=== PATIENT | female | born 1945 | race Caucasian/White ===

== ENCOUNTER 2019-01-21 06:56 | Inpatient (IN) ==
[2019-01-21] MEDS ORDERED: ONDANSETRON 4 MG/2 ML VIAL IV STA (07:36)
[2019-01-21] MEDS ORDERED: SODIUM CHLORIDE 0.9% 1,000 ML IV STA (07:36)
[2019-01-21 07:52] LABS: Basophils % 0.4 % (0.0-0.8); Eosinophils # 0.1 10*3/uL (0.0-0.87); Eosinophils % 1.7 % (0.00-10.9); Hematocrit 32.3 VOL% (35.7-47.0); Hemoglobin 10.8 GM/DL (12.0-16.0); Immature Granulocytes % 0.5 %; Immature Granulocytes Absolute 0.04 #; Lymphocytes # 1.1 10*3/uL (1.4-4.0); Lymphocytes % 12.9 % (21.3-54.2); Mean Corpuscular HGB Conc 33.4 GM/DL (32-36); Mean Corpuscular Volume 83.7 FL (87-102); Mean Platelet Volume 10.2 FL (9.6-12.0); Neutrophils % 76.5 % (38.7-73.9); Platelet Count 214 T/CUMM (130-400); Red Blood Count 3.86 MC/CUMM (3.8-5.5); White Blood Count 8.3 T/CUMM (4-12)
[2019-01-21 07:56] LABS: Apearance,Urine CLEAR (Clear); Bacteria,Urine Occasional /HPF (Few); Bilirubin,Urine Negative (Negative); Blood, Urine Negative (Negative); Glucose,Urine (UA) Negative (Negative); Ketones,Urine Negative (Negative); Nitrite,Urine Negative (Negative); Protein,Urine Negative; RBC,Urine <1 /HPF (0-4); Squamous Epithelial Cell,Urine Occasional /HPF (0-10); Urine Color Straw (Yellow); Urine Specific Gravity 1.003 (1.001-1.035); Urine Urobilinogen < 2.0 EU/DL (0.2-1.0); WBC,Urine 3 /HPF (0-6)
[2019-01-21 08:35] LABS: Calcium 7.2 MG/DL (8.5-10.1)
[2019-01-21 08:36] LABS: Albumin 3.6 G/DL (3.4-5.0); Bilirubin,Total 0.62 MG/DL (0.2-1.0); Osmolality,Calculated 290.1 MOS/KG (273-304); Total Protein 7.4 G/DL (6.4-8.3)
[2019-01-21] MEDS ORDERED: GLUCAGON 1 MG VIAL IM PRN (10:39)
[2019-01-21] MEDS ORDERED: DEXTROSE 50% 25 GM/50 ML VIAL IV PRN (10:39)
[2019-01-21] MEDS ORDERED: CALCIUM (CARBONATE) 600 MG TABLET PO SCH (12:00)
[2019-01-21] MEDS: SODIUM CHLORIDE 0.9% 1,000 ML IV SCH (12:31)
[2019-01-21] MEDS: INSULIN LISPRO 100 UNIT/ML SUBCUT SCH ×3 (12:37→21:48)
[2019-01-21] MEDS: TRIAMTERENE HYDROCHLOROTHIAZIDE PO SCH (12:38)
[2019-01-21] MEDS: ATENOLOL 50 MG PO SCH (12:38)
[2019-01-21] MEDS: CALCIUM (CARBONATE) 500 MG TABLET PO SCH (16:21)
[2019-01-22 00:57] LABS: Basophils % 0.3 % (0.0-0.8); Eosinophils # 0.3 10*3/uL (0.0-0.87); Eosinophils % 3.5 % (0.00-10.9); Hematocrit 29.9 VOL% (35.7-47.0); Immature Granulocytes % 0.3 %; Immature Granulocytes Absolute 0.03 #; Lymphocytes # 1.9 10*3/uL (1.4-4.0); Lymphocytes % 20.7 % (21.3-54.2); Mean Corpuscular HGB Conc 33.4 GM/DL (32-36); Mean Corpuscular Volume 84.9 FL (87-102); Mean Platelet Volume 10.1 FL (9.6-12.0); Monocytes % 8.1 % (1.7-12.7); Neutrophils % 67.1 % (38.7-73.9); Platelet Count 197 T/CUMM (130-400); Red Blood Count 3.52 MC/CUMM (3.8-5.5); White Blood Count 9.2 T/CUMM (4-12)
[2019-01-22 01:14] LABS: Albumin 3.3 G/DL (3.4-5.0); Bilirubin,Total 0.5 MG/DL (0.2-1.0); Calcium 7.4 MG/DL (8.5-10.1); Osmolality,Calculated 287.3 MOS/KG (273-304); Risk Ratio 3.23; Thyroid Stimulating Hormone 0.464 uIU/ml (0.358-3.74); Total Protein 6.7 G/DL (6.4-8.3); VLDL CHOLESTEROL 27.6 MG/DL
[2019-01-22] MEDS ORDERED: MAGNESIUM SULF RIDER 4 GM in PREMIX 1 EACH IV PRN (03:46)
[2019-01-22] MEDS ORDERED: POTASSIUM CHLORIDE 20 MEQ TABLET PO PRN (03:46)
[2019-01-22] MEDS: SODIUM CHLORIDE 0.9% 1,000 ML IV SCH ×2 (03:48→14:51)
[2019-01-22] MEDS: MAGNESIUM SULF RIDER 2 GM in PREMIX 1 EACH IV PRN ×2 (04:08→06:05)
[2019-01-22] MEDS: POTASSIUM CHLORIDE 20 MEQ TABLET PO PRN ×3 (04:09→09:02)
[2019-01-22] MEDS: OMEPRAZOLE 20MG CAPSULE PO SCH (08:58)
[2019-01-22] MEDS: ATENOLOL 50 MG PO SCH (08:58)
[2019-01-22] MEDS: TRIAMTERENE HYDROCHLOROTHIAZIDE PO SCH (09:00)
[2019-01-22] MEDS: INSULIN LISPRO 100 UNIT/ML SUBCUT SCH ×4 (09:01→21:47)
[2019-01-22] MEDS: ENOXAPARIN 40 MG/0.4 ML SYRINGE SUBCUT SCH (09:02)
[2019-01-22] MEDS: CALCIUM (CARBONATE) 500 MG TABLET PO SCH ×3 (09:05→16:36)
[2019-01-22] MEDS ORDERED: CALCIUM GLUCONATE 1,000 MG in SODIUM CHLORIDE 0.9% 100 ML IV ONE (10:00)
[2019-01-22] MEDS: ONDANSETRON 4 MG/2 ML VIAL IV PRN ×2 (10:37→21:50)
[2019-01-22] MEDS: hydrALAZINE 20 MG/1 ML VIAL IV PRN (16:36)
[2019-01-22] MEDS: ACETAMINOPHEN 325 MG TABLET PO PRN (19:35)
[2019-01-23 05:02] LABS: Basophils % 0.3 % (0.0-0.8); Eosinophils # 0.3 10*3/uL (0.0-0.87); Eosinophils % 2.9 % (0.00-10.9); Hematocrit 30.4 VOL% (35.7-47.0); Hemoglobin 10.1 GM/DL (12.0-16.0); Immature Granulocytes % 0.6 %; Immature Granulocytes Absolute 0.06 #; Lymphocytes # 1.8 10*3/uL (1.4-4.0); Lymphocytes % 19.5 % (21.3-54.2); Mean Corpuscular HGB Conc 33.2 GM/DL (32-36); Mean Corpuscular Volume 85.4 FL (87-102); Mean Platelet Volume 10.1 FL (9.6-12.0); Monocytes % 9.7 % (1.7-12.7); Platelet Count 194 T/CUMM (130-400); Red Blood Count 3.56 MC/CUMM (3.8-5.5); White Blood Count 9.3 T/CUMM (4-12)
[2019-01-23] MEDS: SODIUM CHLORIDE 0.9% 1,000 ML IV SCH (05:10)
[2019-01-23 05:25] LABS: Albumin 3.3 G/DL (3.4-5.0); Bilirubin,Total 1.2 MG/DL (0.2-1.0); Calcium 7.9 MG/DL (8.5-10.1); Osmolality,Calculated 284.3 MOS/KG (273-304); Total Protein 6.8 G/DL (6.4-8.3)
[2019-01-23] MEDS ORDERED: MAGNESIUM SULF RIDER 2 GM in PREMIX 1 EACH IV ONE ×2 (08:05→11:49)
[2019-01-23] MEDS: CALCIUM (CARBONATE) 500 MG TABLET PO SCH ×3 (08:09→18:03)
[2019-01-23] MEDS: hydrALAZINE 20 MG/1 ML VIAL IV PRN (08:10)
[2019-01-23] MEDS: ATENOLOL 50 MG PO SCH (08:17)
[2019-01-23] MEDS ORDERED: cloNIDine 0.1 MG TABLET PO ONE (08:20)
[2019-01-23] MEDS ORDERED: LORazepam 2 MG/1 ML VIAL IV ONE (08:20)
[2019-01-23] MEDS: ENOXAPARIN 40 MG/0.4 ML SYRINGE SUBCUT SCH (08:31)
[2019-01-23] MEDS: OMEPRAZOLE 20MG CAPSULE PO SCH (08:32)
[2019-01-23] MEDS: TRIAMTERENE HYDROCHLOROTHIAZIDE PO SCH (08:33)
[2019-01-23] MEDS: INSULIN LISPRO 100 UNIT/ML SUBCUT SCH ×4 (08:51→20:34)
[2019-01-23] MEDS ORDERED: CLORAZEPATE 3.75 MG TABLET PO SCH (09:00)
[2019-01-23 09:23] LABS: Free T4 (Free Thyroxine) 1.71 NG/DL (0.76-1.46); Thyroid Stimulating Hormone 0.685 uIU/ml (0.358-3.74)
[2019-01-23 09:32] LABS: ABG Base Excess -3.7 MMOL/L (-2.5-2.5); ABG HCO3 21.3 MMOL/L (20-26); ABG Oxygen Saturation 98.1 % (95-100); ABG PH 7.389 (7.35-7.45); ABG TCO2 18.3 MMOL/L (23-27)
[2019-01-23 10:20] LABS: % Iron Saturation 10.7 % (18-50); Total Protein 7.2 G/DL (6.4-8.3); Vitamin B12 802 PG/ML (211-911)
[2019-01-23] MEDS ORDERED: POTASSIUM CHLORIDE 20 MEQ TABLET PO ONE (11:49)
[2019-01-23] MEDS: CHOLECALCIFEROL 5,000 UNIT TABLET PO SCH (12:59)
[2019-01-23] MEDS: ACETAMINOPHEN 325 MG TABLET PO PRN (14:28)
[2019-01-23] MEDS: busPIRone 5 MG TABLET PO PRN (14:28)
[2019-01-23] MEDS: DOCUSATE SODIUM 100 MG CAPSULE PO SCH ×2 (14:28→20:36)
[2019-01-24 05:30] LABS: Basophils % 0.4 % (0.0-0.8); Eosinophils # 0.3 10*3/uL (0.0-0.87); Eosinophils % 2.6 % (0.00-10.9); Hematocrit 29.7 VOL% (35.7-47.0); Hemoglobin 9.7 GM/DL (12.0-16.0); Immature Granulocytes % 0.6 %; Immature Granulocytes Absolute 0.06 #; Lymphocytes # 1.3 10*3/uL (1.4-4.0); Lymphocytes % 13.9 % (21.3-54.2); Mean Corpuscular HGB Conc 32.7 GM/DL (32-36); Mean Corpuscular Volume 85.6 FL (87-102); Mean Platelet Volume 10.5 FL (9.6-12.0); Monocytes % 8.5 % (1.7-12.7); Platelet Count 211 T/CUMM (130-400); Red Blood Count 3.47 MC/CUMM (3.8-5.5); Red Cell Distribution Width 12.2 % (9.3-17.3); White Blood Count 9.6 T/CUMM (4-12)
[2019-01-24 05:53] LABS: Albumin 3.1 G/DL (3.4-5.0); Bilirubin,Total 0.8 MG/DL (0.2-1.0); Calcium 7.5 MG/DL (8.5-10.1); Osmolality,Calculated 283.7 MOS/KG (273-304); Total Protein 6.8 G/DL (6.4-8.3)
[2019-01-24] MEDS: ENOXAPARIN 40 MG/0.4 ML SYRINGE SUBCUT SCH (08:39)
[2019-01-24] MEDS: INSULIN LISPRO 100 UNIT/ML SUBCUT SCH ×4 (08:40→21:26)
[2019-01-24] MEDS: DOCUSATE SODIUM 100 MG CAPSULE PO SCH ×2 (08:40→21:27)
[2019-01-24] MEDS: CALCIUM (CARBONATE) 500 MG TABLET PO SCH ×3 (08:40→17:02)
[2019-01-24] MEDS: CHOLECALCIFEROL 5,000 UNIT TABLET PO SCH (08:40)
[2019-01-24] MEDS: ESCITALOPRAM 10 MG TABLET PO SCH (08:42)
[2019-01-24] MEDS: OMEPRAZOLE 20MG CAPSULE PO SCH (09:40)
[2019-01-24] MEDS: ATENOLOL 50 MG PO SCH (09:41)
[2019-01-24] MEDS ORDERED: CALCIUM GLUCONATE 1,000 MG in SODIUM CHLORIDE 0.9% 100 ML IV ONE (11:30)
[2019-01-24] MEDS: amLODIPine 5 MG TABLET PO SCH (11:55)
[2019-01-24] MEDS: NYSTATIN 500,000 UNIT/5 ML UDCUP SWISH/SWAL SCH ×4 (11:55→21:26)
[2019-01-24] MEDS: ONDANSETRON 4 MG/2 ML VIAL IV PRN (18:21)
[2019-01-24] MEDS: hydrALAZINE 20 MG/1 ML VIAL IV PRN (23:30)
[2019-01-25] MEDS: LEVOTHYROXINE 88 MCG TABLET PO SCH (06:18)
[2019-01-25] MEDS: CHOLECALCIFEROL 5,000 UNIT TABLET PO SCH (09:42)
[2019-01-25] MEDS: amLODIPine 5 MG TABLET PO SCH (09:42)
[2019-01-25] MEDS: CALCIUM (CARBONATE) 500 MG TABLET PO SCH ×3 (09:43→16:51)
[2019-01-25] MEDS: NYSTATIN 500,000 UNIT/5 ML UDCUP SWISH/SWAL SCH ×4 (09:43→20:48)
[2019-01-25] MEDS: DOCUSATE SODIUM 100 MG CAPSULE PO SCH ×2 (09:43→20:48)
[2019-01-25] MEDS: busPIRone 5 MG TABLET PO PRN (09:48)
[2019-01-25] MEDS: ENOXAPARIN 40 MG/0.4 ML SYRINGE SUBCUT SCH (09:48)
[2019-01-25] MEDS: INSULIN LISPRO 100 UNIT/ML SUBCUT SCH ×4 (09:49→21:35)
[2019-01-25] MEDS: ESCITALOPRAM 10 MG TABLET PO SCH (09:49)
[2019-01-25] MEDS: ATENOLOL 50 MG PO SCH (10:45)
[2019-01-25] MEDS: OMEPRAZOLE 20MG CAPSULE PO SCH (10:45)
[2019-01-25] MEDS ORDERED: ZALEPLON 5 MG CAPSULE PO PRN (11:14)
[2019-01-25] MEDS ORDERED: SODIUM CHLORIDE 0.9% 1,000 ML IV SCH (11:30)
[2019-01-25] MEDS: LIOTHYRONINE 25 MCG TABLET PO SCH ×2 (11:51→14:08)
[2019-01-25 13:04] LABS: Calcium 7.4 MG/DL (8.5-10.1)
[2019-01-25] MEDS ORDERED: LORazepam 2 MG/1 ML VIAL IV ONE (16:27)
[2019-01-25] MEDS: CLORAZEPATE 3.75 MG TABLET PO SCH ×2 (16:52→20:48)
[2019-01-25] MEDS ORDERED: MAGNESIUM SULF RIDER 2 GM in PREMIX 1 EACH IV ONE (17:14)
[2019-01-26 05:31] LABS: Immunoglobulin A (Chem) 144 MG/DL (70-400); Immunoglobulin G (Chem) 684 MG/DL (700-1600); Immunoglobulin M (Chem) 221 MG/DL (40-230); Total Protein (Chem) 7.2 G/DL (6.4-8.3)
[2019-01-26] MEDS: LEVOTHYROXINE 88 MCG TABLET PO SCH (06:25)
[2019-01-26] MEDS: LIOTHYRONINE 25 MCG TABLET PO SCH (06:26)
[2019-01-26] MEDS: ESCITALOPRAM 10 MG TABLET PO SCH (08:10)
[2019-01-26] MEDS: CALCIUM (CARBONATE) 500 MG TABLET PO SCH ×3 (08:10→16:40)
[2019-01-26] MEDS: INSULIN LISPRO 100 UNIT/ML SUBCUT SCH ×4 (08:10→21:22)
[2019-01-26] MEDS: ENOXAPARIN 40 MG/0.4 ML SYRINGE SUBCUT SCH (08:10)
[2019-01-26] MEDS: busPIRone 5 MG TABLET PO PRN (08:10)
[2019-01-26] MEDS: NYSTATIN 500,000 UNIT/5 ML UDCUP SWISH/SWAL SCH ×4 (08:10→21:12)
[2019-01-26] MEDS: CLORAZEPATE 3.75 MG TABLET PO SCH (08:10)
[2019-01-26] MEDS: DOCUSATE SODIUM 100 MG CAPSULE PO SCH ×2 (08:10→21:12)
[2019-01-26] MEDS: amLODIPine 5 MG TABLET PO SCH (08:10)
[2019-01-26] MEDS: CHOLECALCIFEROL 5,000 UNIT TABLET PO SCH (08:10)
[2019-01-26] MEDS: OMEPRAZOLE 20MG CAPSULE PO SCH (08:19)
[2019-01-26] MEDS: ATENOLOL 50 MG PO SCH (08:20)
[2019-01-26 08:34] LABS: Albumin (SPE) 4.2 G/DL (3.2-5.3); Albumin (SPE) Rel % 57.9 %; Alpha 1 (SPE) 0.3 G/DL (0.1-0.4); Alpha 1 (SPE) Rel % 3.6 %; Alpha 2 (SPE) 1.1 G/DL (0.4-1.0); Alpha 2 (SPE) Rel % 15.7 %; Beta (SPE) 0.9 G/DL (0.5-1.1); Gamma (SPE) 0.8 G/DL (0.7-1.7); Gamma (SPE) Rel % 10.8 %
[2019-01-26] MEDS ORDERED: CALCIUM GLUCONATE 1,000 MG in SODIUM CHLORIDE 0.9% 100 ML IV ONE (10:25)
[2019-01-26] MEDS ORDERED: busPIRone 5 MG TABLET PO PRN (10:27)
[2019-01-26 11:18] LABS: Calcium 7.2 MG/DL (8.5-10.1); Osmolality,Calculated 276.5 MOS/KG (273-304)
[2019-01-26] MEDS: MAGNESIUM CHLORIDE 64 MG TABLET PO SCH ×2 (15:42→21:12)
[2019-01-26] MEDS: CALCITRIOL 0.5 MCG CAPSULE PO SCH ×2 (15:43→21:12)
[2019-01-26] MEDS: ONDANSETRON 4 MG/2 ML VIAL IV PRN (18:08)
[2019-01-26 20:43] LABS: ABG Base Excess -2.2 MMOL/L (-2.5-2.5); ABG HCO3 22.4 MMOL/L (20-26); ABG Oxygen Saturation 88.4 % (95-100); ABG PCO2 45.6 MM HG (35-48); ABG PH 7.328 (7.35-7.45); ABG PO2 59.6 MM HG (80-95); Allen Test Positive; Pt O2 Delivery Device CPAP
[2019-01-26] MEDS: INSULIN GLARGINE 100 UNIT/ML SUBCUT SCH (21:18)
[2019-01-27 05:11] LABS: Calcium 7.3 MG/DL (8.5-10.1)
[2019-01-27] MEDS: LIOTHYRONINE 25 MCG TABLET PO SCH (06:46)
[2019-01-27] MEDS: LEVOTHYROXINE 88 MCG TABLET PO SCH (06:46)
[2019-01-27] MEDS: OMEPRAZOLE 20MG CAPSULE PO SCH ×2 (08:50→08:52)
[2019-01-27] MEDS: INSULIN LISPRO 100 UNIT/ML SUBCUT SCH ×4 (08:50→22:40)
[2019-01-27] MEDS: CALCIUM (CARBONATE) 500 MG TABLET PO SCH ×4 (08:50→16:34)
[2019-01-27] MEDS: DOCUSATE SODIUM 100 MG CAPSULE PO SCH ×3 (08:51→22:40)
[2019-01-27] MEDS: ATENOLOL 50 MG PO SCH ×2 (08:51)
[2019-01-27] MEDS: ESCITALOPRAM 10 MG TABLET PO SCH ×2 (08:51)
[2019-01-27] MEDS: CALCITRIOL 0.5 MCG CAPSULE PO SCH ×3 (08:52→22:39)
[2019-01-27] MEDS: ENOXAPARIN 40 MG/0.4 ML SYRINGE SUBCUT SCH (08:52)
[2019-01-27] MEDS: MAGNESIUM CHLORIDE 64 MG TABLET PO SCH ×3 (08:52→22:43)
[2019-01-27] MEDS: amLODIPine 5 MG TABLET PO SCH ×2 (08:52)
[2019-01-27] MEDS: NYSTATIN 500,000 UNIT/5 ML UDCUP SWISH/SWAL SCH ×4 (08:52→22:44)
[2019-01-27] MEDS: CHOLECALCIFEROL 5,000 UNIT TABLET PO SCH ×2 (08:53)
[2019-01-27] MEDS ORDERED: FLUMAZENIL 1 MG/10 ML VIAL IV ONE (11:36)
[2019-01-27] MEDS: CALCIUM CARBONATE CHEW 500 MG TABLET PO SCH ×2 (16:34→22:53)
[2019-01-27] MEDS: INSULIN GLARGINE 100 UNIT/ML SUBCUT SCH (22:40)
[2019-01-27] MEDS: hydrALAZINE 20 MG/1 ML VIAL IV PRN (22:47)
[2019-01-28] MEDS: LEVOTHYROXINE 88 MCG TABLET PO SCH (05:03)
[2019-01-28] MEDS: hydrALAZINE 20 MG/1 ML VIAL IV PRN ×2 (05:16→20:56)
[2019-01-28 06:05] LABS: Calcium 7.7 MG/DL (8.5-10.1); Osmolality,Calculated 284.5 MOS/KG (273-304)
[2019-01-28] MEDS ORDERED: LACTATED RINGERS 1,000 ML IV SCH (08:00)
[2019-01-28] MEDS ORDERED: PROPOFOL 200 MG/20 ML VIAL IV ONE (09:30)
[2019-01-28] MEDS ORDERED: LIDOCAINE 2% 5 ML VIAL ONE (09:30)
[2019-01-28] MEDS: INSULIN LISPRO 100 UNIT/ML SUBCUT SCH ×5 (10:26→22:35)
[2019-01-28] MEDS: OMEPRAZOLE 20MG CAPSULE PO SCH (10:27)
[2019-01-28] MEDS: CALCIUM (CARBONATE) 500 MG TABLET PO SCH ×3 (10:27→17:34)
[2019-01-28] MEDS: ATENOLOL 50 MG PO SCH (10:27)
[2019-01-28] MEDS: DOCUSATE SODIUM 100 MG CAPSULE PO SCH ×2 (10:28→20:34)
[2019-01-28] MEDS: MAGNESIUM CHLORIDE 64 MG TABLET PO SCH (10:28)
[2019-01-28] MEDS: CALCITRIOL 0.5 MCG CAPSULE PO SCH ×2 (10:28→20:35)
[2019-01-28] MEDS: amLODIPine 5 MG TABLET PO SCH (10:28)
[2019-01-28] MEDS: ESCITALOPRAM 10 MG TABLET PO SCH (10:28)
[2019-01-28] MEDS: NYSTATIN 500,000 UNIT/5 ML UDCUP SWISH/SWAL SCH ×4 (10:28→20:35)
[2019-01-28] MEDS: CALCIUM CARBONATE CHEW 500 MG TABLET PO SCH ×3 (10:29→20:34)
[2019-01-28] MEDS: CHOLECALCIFEROL 5,000 UNIT TABLET PO SCH (10:29)
[2019-01-28 17:35] LABS: Basophils % 0.4 % (0.0-0.8); Eosinophils # 0.1 10*3/uL (0.0-0.87); Hematocrit 31.8 VOL% (35.7-47.0); Hemoglobin 10.7 GM/DL (12.0-16.0); Immature Granulocytes % 1.3 %; Immature Granulocytes Absolute 0.12 #; Lymphocytes # 1.4 10*3/uL (1.4-4.0); Lymphocytes % 15.8 % (21.3-54.2); Mean Corpuscular HGB Conc 33.6 GM/DL (32-36); Mean Corpuscular Volume 84.6 FL (87-102); Mean Platelet Volume 9.9 FL (9.6-12.0); Monocytes % 8.9 % (1.7-12.7); Neutrophils % 72.6 % (38.7-73.9); Platelet Count 255 T/CUMM (130-400); Red Blood Count 3.76 MC/CUMM (3.8-5.5); Red Cell Distribution Width 12.3 % (9.3-17.3); White Blood Count 9.1 T/CUMM (4-12)
[2019-01-28] MEDS: LEVOFLOXACIN 750 MG TABLET PO SCH (17:35)
[2019-01-28] MEDS: ALBUTEROL 1.25 MG/3 ML NEB RESP TX SCH (20:03)
[2019-01-28] MEDS: INSULIN GLARGINE 100 UNIT/ML SUBCUT SCH (22:34)
[2019-01-29] MEDS: ALBUTEROL 1.25 MG/3 ML NEB RESP TX SCH ×2 (00:26→06:58)
[2019-01-29 05:29] LABS: Calcium 8.4 MG/DL (8.5-10.1); Osmolality,Calculated 284.5 MOS/KG (273-304)
[2019-01-29] MEDS: LEVOTHYROXINE 88 MCG TABLET PO SCH (07:06)
[2019-01-29] MEDS: INSULIN LISPRO 100 UNIT/ML SUBCUT SCH ×4 (07:06→20:34)
[2019-01-29] MEDS: hydrALAZINE 20 MG/1 ML VIAL IV PRN (07:08)
[2019-01-29] MEDS: OMEPRAZOLE 20MG CAPSULE PO SCH (08:00)
[2019-01-29] MEDS: CALCIUM (CARBONATE) 500 MG TABLET PO SCH ×3 (09:00→17:22)
[2019-01-29] MEDS: CALCITRIOL 0.5 MCG CAPSULE PO SCH ×2 (09:01→20:32)
[2019-01-29] MEDS: CHOLECALCIFEROL 5,000 UNIT TABLET PO SCH (09:01)
[2019-01-29] MEDS: LEVOFLOXACIN 750 MG TABLET PO SCH (09:01)
[2019-01-29] MEDS: metFORMIN 500 MG TABLET PO SCH ×2 (09:01→17:22)
[2019-01-29] MEDS: amLODIPine 5 MG TABLET PO SCH (09:02)
[2019-01-29] MEDS: CALCIUM CARBONATE CHEW 500 MG TABLET PO SCH ×3 (09:04→20:32)
[2019-01-29] MEDS: ESCITALOPRAM 10 MG TABLET PO SCH (09:19)
[2019-01-29] MEDS: NYSTATIN 500,000 UNIT/5 ML UDCUP SWISH/SWAL SCH ×4 (09:19→20:32)
[2019-01-29] MEDS: DOCUSATE SODIUM 100 MG CAPSULE PO SCH ×2 (09:19→20:33)
[2019-01-29] MEDS: ATENOLOL 50 MG PO SCH (09:48)
[2019-01-29] MEDS: POTASSIUM CHLORIDE 20 MEQ TABLET PO PRN (11:50)
[2019-01-29] MEDS: MAGNESIUM SULF RIDER 2 GM in PREMIX 1 EACH IV PRN (11:51)
[2019-01-29] MEDS: SODIUM CHLORIDE 3% 4 ML NEB RESP TX SCH ×2 (13:11→19:35)
[2019-01-29] MEDS: TRIAMTERENE/HCTZ 37.5-25 MG TABLET PO SCH (15:59)
[2019-01-29] MEDS: INSULIN GLARGINE 100 UNIT/ML SUBCUT SCH (20:33)
[2019-01-30] MEDS: LEVOTHYROXINE 88 MCG TABLET PO SCH (05:09)
[2019-01-30] MEDS: SODIUM CHLORIDE 3% 4 ML NEB RESP TX SCH ×3 (07:35→20:11)
[2019-01-30] MEDS: CHOLECALCIFEROL 5,000 UNIT TABLET PO SCH (11:23)
[2019-01-30] MEDS: TRIAMTERENE/HCTZ 37.5-25 MG TABLET PO SCH (11:23)
[2019-01-30] MEDS: ESCITALOPRAM 10 MG TABLET PO SCH (11:23)
[2019-01-30] MEDS: CALCIUM (CARBONATE) 500 MG TABLET PO SCH ×2 (11:23→17:10)
[2019-01-30] MEDS: LEVOFLOXACIN 750 MG TABLET PO SCH (11:23)
[2019-01-30] MEDS: DOCUSATE SODIUM 100 MG CAPSULE PO SCH ×2 (11:24→21:15)
[2019-01-30] MEDS: amLODIPine 5 MG TABLET PO SCH (11:24)
[2019-01-30] MEDS: ATENOLOL 50 MG PO SCH (11:25)
[2019-01-30] MEDS: CALCIUM CARBONATE CHEW 500 MG TABLET PO SCH ×3 (11:29→21:15)
[2019-01-30] MEDS: metFORMIN 500 MG TABLET PO SCH ×2 (11:43→17:10)
[2019-01-30] MEDS: CALCITRIOL 0.5 MCG CAPSULE PO SCH ×2 (11:43→21:19)
[2019-01-30] MEDS: INSULIN LISPRO 100 UNIT/ML SUBCUT SCH ×4 (11:44→21:19)
[2019-01-30] MEDS: NYSTATIN 500,000 UNIT/5 ML UDCUP SWISH/SWAL SCH ×4 (11:44→21:15)
[2019-01-30] MEDS: OMEPRAZOLE 20MG CAPSULE PO SCH (11:44)
[2019-01-30] MEDS ORDERED: LACTULOSE 20 GM/30 ML UDCUP PO PRN (13:25)
[2019-01-30 14:02] LABS: Albumin 3.1 G/DL (3.4-5.0); Bilirubin,Total 0.6 MG/DL (0.2-1.0); Calcium 8.4 MG/DL (8.5-10.1); Osmolality,Calculated 280.8 MOS/KG (273-304); Total Protein 6.7 G/DL (6.4-8.3)
[2019-01-30] MEDS: INSULIN GLARGINE 100 UNIT/ML SUBCUT SCH (21:15)
[2019-01-30] MEDS: hydrALAZINE 20 MG/1 ML VIAL IV PRN (23:56)
[2019-01-31] MEDS: LEVOTHYROXINE 88 MCG TABLET PO SCH (05:14)
[2019-01-31 07:22] VITALS: BP 144/56
[2019-01-31] MEDS: SODIUM CHLORIDE 3% 4 ML NEB RESP TX SCH ×2 (07:24→12:18)
[2019-01-31] MEDS: ESCITALOPRAM 10 MG TABLET PO SCH (08:33)
[2019-01-31] MEDS: TRIAMTERENE/HCTZ 37.5-25 MG TABLET PO SCH (08:33)
[2019-01-31] MEDS: CALCIUM (CARBONATE) 500 MG TABLET PO SCH ×2 (08:33→12:00)
[2019-01-31] MEDS: LEVOFLOXACIN 750 MG TABLET PO SCH (08:33)
[2019-01-31] MEDS: CHOLECALCIFEROL 5,000 UNIT TABLET PO SCH (08:34)
[2019-01-31] MEDS: amLODIPine 5 MG TABLET PO SCH (08:34)
[2019-01-31] MEDS: metFORMIN 500 MG TABLET PO SCH (08:34)
[2019-01-31] MEDS: INSULIN LISPRO 100 UNIT/ML SUBCUT SCH ×2 (08:34→12:00)
[2019-01-31] MEDS: NYSTATIN 500,000 UNIT/5 ML UDCUP SWISH/SWAL SCH ×3 (08:36→13:00)
[2019-01-31] MEDS: DOCUSATE SODIUM 100 MG CAPSULE PO SCH (08:41)
[2019-01-31] MEDS: CALCITRIOL 0.5 MCG CAPSULE PO SCH (08:41)
[2019-01-31] MEDS: CALCIUM CARBONATE CHEW 500 MG TABLET PO SCH (08:42)
[2019-01-31] MEDS: OMEPRAZOLE 20MG CAPSULE PO SCH (09:50)
[2019-01-31] MEDS: ATENOLOL 50 MG PO SCH (09:51)
== END 2019-01-31 13:35 | disposition home health service (06) | DRG 640 ==
LOC: N.ED 06:56 → N.EDINP 10:41 → SUATTDRO 10:41 → N.5E 12:05
PROVIDERS: ADMIT Internal Medicine; ATTEND Internal Medicine Infectious Disease